=== PATIENT | female | born 1985 | race Caucasian/White ===

== ENCOUNTER 2017-12-06 19:47 | Emergency (ER) | payer MEDICAID, OTHER ==
[~2017-12-06] VITALS: Ht 162.6 cm; Wt 74.0 kg
[2017-12-06 19:55] VITALS: BP 136/85
--- NOTE | 2017-12-06 19:59 | NUR ---
URINE COLLECTED AND PT RETURNED TO LOBBY
--- NOTE | 2017-12-06 21:45 | NUR ---
PATIENT LEFT WITHOUT BEING SEEN BY DR. FOREMAN. NO FURTHER CARE PROVIDED FOR PATIENT.
== END 2017-12-06 21:45 | disposition left against medical advice (07) ==
LOC: MED 19:47
DX: M54.9 Dorsalgia, unspecified (principal); Z53.21 Procedure and treatment not carried out due to patient leaving prior to being seen by health care provider